=== PATIENT | male | born 2000 | race Hispanic/Latino ===

== ENCOUNTER 2024-09-25 15:17 | Emergency (ER) | payer OTHER, SELFPAY ==
[2024-09-25 15:24] VITALS: BP 113/63; PULSE 84; RESP 17; TEMP 36.9; O2SAT 98; BMI 28.3
--- NOTE | 2024-09-25 19:36 | DI.RAD.S_ITS ---
PROCEDURE: XR FINGER RT MIN 2V INDICATIONS: trauma TECHNIQUE: AP hand, 2 views of the 3rd finger(s) acquired. COMPARISON: None. FINDINGS: Bones: No fractures or dislocations. No suspicious bony lesions. Soft tissues: No suspicious soft tissue calcifications. IMPRESSION: No acute 3rd finger fracture or dislocation. No gross soft tissue abnormalities. Dictated by: Gallo Adame M.D. on 09/25/2024 at 20:39 Approved by: Gallo Adame M.D. on 09/25/2024 at 20:44
--- NOTE | 2024-09-25 19:36 | ED.WOUNDLAC ---
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 Was seen at a nearby ER and partially sutured but due to poor lighting apparently was brought here for further evaluation. They did give him a tetanus shot prior to his arrival. Other than what is stated 14 point review of system is negative. Related Data Previous Rx's Medication Instructions Recorded sulfamethoxazole 800 1 tab PO BID #14 tabs 09/25/24 mg-trimethoprim 160 mg tablet (Bactrim DS) Allergies Allergy/AdvReac Type Severity Reaction Status Date / Time No Known Drug Allergies Allergy Verified 09/25/24 15:28 Review of Systems Review of Systems ROS Unobtainable: All systems reviewed & are unremarkable except as noted in HPI and below Patient History Medical History (Updated 09/25/24 @ 21:06 by Lalito Porras, DO) Rash Social History Smoking Status: Never smoker Smoking Status: Never smoker Exam Narrative Exam Narrative: GENERAL: [23] year old patient appears stated age. Well-developed patient, in mild distress. HEAD: Atraumatic. Normocephalic. EYES: Pupils equal round and reactive. Extraocular motions intact. No scleral icterus. No injection or drainage. EXTREMITIES: No edema or joint tenderness. R middle finger laceration jagged irregular shape deep laceration, motor/sensory intact +2 rad pulse cap refill <2secs BACK: Nontender without deformity or crepitance. No flank tenderness. NEURO: AOx3. SKIN: No rash or erythema of visible areas Initial Vital Signs Initial Vital Signs: Vital Signs Temperature 98.4 F 09/25/24 15:24 Pulse Rate 84 09/25/24 15:24 Respiratory Rate 17 09/25/24 15:24 Blood Pressure 113/63 09/25/24 15:24 Pulse Oximetry 98 09/25/24 15:24 Oxygen Delivery Method Room Air 09/25/24 15:24 Procedures Laceration Repair Laceration 1: Time of procedure: 21:04 Site: other (R middle finger 6 sutures placed by previous provider) Side (If applicable): right Size (cm): 2.0 Description: linear and irregular Depth: simple, single layer Local Anesthetic: lidocaine 1% and with epi Amount of anesthesia used (mL): 3 Pre-repair: wound explored and irrigated extensively Skin layer closed with: nylon Skin layer suture size: 4-0 Number of sutures: 10 Technique: simple, interrupted Course Orders Ordered: ED Orders 09/25/24 19:36 XR finger RT min 2V Stat Vital Signs Vital signs: Vital Signs - 8 hr 09/25/24 15:24 Temperature 98.4 F Pulse Rate 84 Respiratory Rate 17 Blood Pressure 113/63 Pulse Oximetry 98 Oxygen Delivery Method Room Air MDM - Wound/Laceration Imaging Data Extremity x-ray #1: Radiologist's Impression: [address] [address] XRay Report Signed Patient: Paul Fields MR#: [id number] : 2000 Acct:[id number] Age/Sex: 23 / M Date of Service: 09/25/24 Loc: ED Accession Number: [id number] Procedure: XR finger RT min 2V Ordering Provider: Lalito Porras D.O. PROCEDURE: XR FINGER RT MIN 2V INDICATIONS: trauma TECHNIQUE: AP hand, 2 views of the 3rd finger(s) acquired. COMPARISON: None. FINDINGS: Bones: No fractures or dislocations. No suspicious bony lesions. Soft tissues: No suspicious soft tissue calcifications. IMPRESSION: No acute 3rd finger fracture or dislocation. No gross soft tissue abnormalities. [facility] Narrative Medical decision making narrative: Vital signs nurse triage note medication list previous ER visits in all imaging studies reviewed. Ten stitches placed on top of 6 already placed by previous providers single interrupted 4-0 nylon used. X-ray did not show any foreign body. Talk well bacitracin applied wound dressing placed and sent home on Bactrim antibiotics with suture removal in 10-14 days. Differential diagnosis includes laceration foreign body cellulitis. Discharge Plan Departure Patient Disposition: Home Clinical Impression: Laceration of finger Instructions: DI for Laceration Repair Activity Restrictions/Additional Instructions: Return with new or worsening symptoms. Take your medicines as directed follow up with PCP in 10-14 days for suture removal. Prescriptions: New sulfamethoxazole-trimethoprim [Bactrim DS] 800-160 mg tablet 1 tab PO BID Qty: 14 0RF Referrals: Eliza Mcrae PA-C [Primary Care Provider] - Stand Alone Forms: Patient Portal/API/Survey
[2024-09-25] MEDS: TRIMETH/SULFA 160/800 (DS) TABLET 1 TAB PO (21:10)
[2024-09-25 21:11] VITALS: BP 119/74; PULSE 85; RESP 18; O2SAT 99
[2024-09-25] MEDS: BACITRACIN OINT 0.9 GM PCKT 1 APPLIC TOP (21:11)
--- NOTE | 2024-09-25 21:25 | PC.NURSE ---
Placed non adherant gauze with finger splint wrapped in roll gauze
== END 2024-09-25 21:30 | disposition home or self-care (01) ==
PROVIDERS: Emergency Provider Family Medicine; PCP Physician Assistant Medical
DX: S61.212A Laceration without foreign body of right middle finger without damage to nail, initial encounter (principal); W45.0XXA Nail entering through skin, initial encounter
CPT/HCPCS: 12001; 73140; 99283